=== PATIENT | female | born 2000 | race Caucasian/White ===

== ENCOUNTER 2024-06-13 11:01 | Emergency (ER) | payer BC, MEDICAID ==
[~2024-06-13] VITALS: Ht 160 cm; Wt 50.9 kg
--- NOTE | 2024-06-13 11:31 | Physician Documentation ---
History of Present Illness ~ Chief Complaint: Urinary Symptoms Stated Complaint: HEADACHE Time Seen by MD: 11:15 Primary Medical Doctor: amalia Mode of Arrival: Dropped Off HPI This 24-year-old female presents with five days of sore throat and two days of headache, patient reports subjective fever at home however is not taking her temperature, patient reports she called her primary care provider who asked her to presented to the emergency department for concern for meningitis. Patient reports headache is more prominent frontal and has posterior neck soreness. Patient reports feeling of nausea without vomiting. I spoke to her primary care provider prior to her arrival. Patient is on her 5th day of a five day course of TMP SMX for urinary tract infection. Patient reports her significant other also is developing a sore throat. Medication Reconciliation Allergies: Coded Allergies: Penicillins (Verified Allergy, Intermediate, 06/13/24) Past Medical History Past Medical History: No Pertinent History Review of Systems ROS Sore throat, headache, posterior neck pain as stated above in the HPI, otherwise all systems are reviewed and negative. Physical Exam Vital Signs: Temperature: 98.7, Source: Oral, Heart Rate: 117, Respiratory Rate: 18, BP: 122/67, Pulse Oximetry: 99, Weight: 50.850 Physical Exam VITALS: Reviewed and as above. GENERAL: Alert and oriented x4, nontoxic appearing, no apparent distress. HEENT: PERRLA, EOMI, negative Brudzinski sign, no meningeal signs, neck supple with mild tenderness to the posterior base of skull at the neck. Tonsils non swollen, mildly erythematous, mucosa moist RESPIRATORY: No increased work of breathing, no respiratory distress, speaking in full clear sentences, clear lung sounds in all brown CV: Regular rate and rhythm no murmur BACK: No CVA tenderness, GI: Nondistended, no tenderness to palpation, no rebound, no guarding SKIN: Warm and dry, No rash Progress Results/Orders Results/Orders Completed Orders - PADDY KAPADIA [employer] Hcg, Ur Ql (06/13/24 11:32) Cbc/Diff (06/13/24 11:32) CMP (06/13/24 11:32) Acetaminophen 325mg Tablet (Tylenol Tabl (06/13/24 11:35) Ua W/Microscopic, Cult If Ind (06/13/24 11:45) Man Diff (06/13/24 12:01) Ketorolac Trometh 15mg/Ml Vial (Toradol (06/13/24 12:45) Prochlorperazine Inj (Compazine Inj) (06/13/24 12:45) Normal Saline 1000ml (Sodium Chloride 10 (06/13/24 12:45) Diphenhydramine Inj (Benadryl Inj.) (06/13/24 12:45) Vital Signs 06/13/24 06/13/24 06/13/24 06/13/24 11:05 11:13 12:24 13:33 Temp 98.7 98.6 98.6 Pulse 117 103 94 Resp 18 18 16 18 B/P (MAP) 122/67 108/64 (79) 106/63 (77) Pulse Ox 99 97 99 O2 Flow Rate 0 0 06/13/24 06/13/24 13:34 14:28 Temp 98.6 Pulse 85 Resp 18 18 B/P (MAP) 112/86 Pulse Ox 99 Laboratory Tests Test 06/13/24 11:45 06/13/24 12:01 Urine Specimen Description Cln catch midstream Urine Color Yellow Urine Clarity Clear Urine pH 6.0 Urine Specific [place] >=1.030 Urine Protein Trace Urine Glucose (UA) Negative Urine Ketones 15 H Urine Occult Blood Negative Urine Nitrite Negative Urine Bilirubin Small Urine Urobilinogen 0.2 Urine Leukocyte Esterase Negative Urine RBC 0-2 Urine WBC None seen Urine Squamous Epithelial Cells Few Urine Bacteria None seen Urine Culture Indicated Not ind Volume Urine Centrifuged 10 ml Urine HCG, Qualitative Negative Urine Comment White Blood Count 1.7 L Red Blood Count 4.59 Hemoglobin 14.0 Hematocrit 41.5 Mean Corpuscular Volume 90.3 Mean Corpuscular Hemoglobin 30.5 Mean Corpuscular Hemoglobin Concent 33.7 Red Cell Distribution Width 13.6 Platelet Count 119 L Mean Platelet Volume 9.5 Neutrophils (%) (Auto) 72.4 Lymphocytes (%) (Auto) 10.5 L Monocytes (%) (Auto) 11.3 Eosinophils (%) (Auto) 5.5 Basophils (%) (Auto) 0.3 Neutrophils # (Auto) 1.2 L Lymphocytes # (Auto) 0.2 L Monocytes # (Auto) 0.2 Eosinophils # (Auto) 0.1 Basophils # (Auto) 0.0 CBC Comment Differential Total Cells Counted 100 Neutrophils % (Manual) 82.0 H Lymphocytes % (Manual) 7.0 L Monocytes % (Manual) 6.0 Eosinophils % (Manual) 5.0 Platelet Estimate Decreased Red Blood Cell Morphology Normal Basophilic Stippling Sodium Level 135 Potassium Level 3.6 Chloride Level 103 Carbon Dioxide Level 22.8 L Anion Gap 9 Blood Urea Nitrogen 10 Creatinine 1.04 H Estimated GFR/1.73 m2 66 BUN/Creatinine Ratio 9.6 L Glucose Level 81 Calcium Level 8.3 L Total Bilirubin 0.4 Aspartate Amino Transf (AST/SGOT) 15 Alanine Aminotransferase (ALT/SGPT) 23 Alkaline Phosphatase 55 Total Protein 6.8 Albumin 3.8 Globulin 3.0 Albumin/Globulin Ratio 1.3 Chemistry Comments Medical Decision Making Findings This 24-year-old female presented with five days of sore throat and two days headache with subjective fever at home, she was sent by her primary care provider due to concern for possible meningitis based on symptoms she described to them over the phone, however as provider did not see patient in the office and on physical exam patient is afebrile and did not have meningeal signs, believe this to be viral illness with a viral pharyngitis and headache. Patient was medicated for headache and responded well to medication. Remainder of physical exam was benign and vital signs stable, labs did demonstrate a dec reased WBC and platelet count that patient will require outpatient follow up in the next two weeks for recheck, otherwise lab work was unremarkable without evidence of infection or metabolic derangement. Patient is appropriate for outpatient follow up and patient was provided careful return to care precautions and home care instructions which she verbalized understanding of. I was able to have a conversation with the patient's primary care provider who called to follow up on patient's case after he directed her to the emergency department, during this conversation with the patient's primary care provider I did discuss patient's need for repeat labs due to WBC and platelet count being decreased which he agreed to facilitate. Differential Dx:Considerations: Include: MOON-Cluster, MOON-Migraine, MOON- Hypertensive, MOON-Muscular contraction, MOON-Post lumbar puncture, CVA, Mass lesion, Meningitis, Sinusitis Departure Disposition: HOME / SELF CARE / HOMELESS Impression: Primary Impression: Headache Qualified Codes: R51.9 - Headache, unspecified Additional Impression: Sore throat (viral) Condition: Improved Discharge Instructions: General Headache Without Cause, [id number], Sore Throat, [id number], Viral Illness, Adult Additional Instructions: Your exam was reassuring and I believe your symptoms are from a viral illness, you may use ibuprofen and/or Tylenol as needed for pain or fever. There was a slight abnormality in one of your lab values with your white blood cell count being decreased and I recommend following up with your primary care provider for a repeat set of labs in the next two weeks. Please follow up with your primary care provider in the next few days. Please return to the emergency department for any new or worsening concerning symptoms including but not limited to worsening pain, confusion, persistent vomiting, or a fever over 100.4 that does not lower with ibuprofen or Tylenol. Referrals: NO PRIMARY CARE PROVIDER (PCP) Education Educated: Patient Educated regarding: diagnosis, treatment, prognosis, need for follow up Signature Scribe Signature: No Scribe Attestation: The note accurately reflects work and decisions made by me.NAYANA Swift 06/13/24 21:01 PADDY KAPADIA Jun 13, 2024 11:31
[2024-06-13] MEDS: acetaminophen 325mg tablet PO ONE (11:37)
[2024-06-13 11:54] LABS: URINE HCG NEGATIVE (NEG)
[2024-06-13 11:59] LABS: BILIRUBIN,URINE SMALL (Neg); CLARITY,URINE CLEAR (Clear); COLOR,URINE YELLOW (Yellow); GLUCOSE, URINE NEGATIVE (Neg); KETONES,URINE 15 mg/dl (Neg); LEUKOCYTE ESTERASE ,URINE NEGATIVE (Neg); NITRITES, URINE NEGATIVE (Neg); OCCULT BLOOD,URINE NEGATIVE (Neg); PROTEIN,URINE TRACE mg/dl (Neg); UA COLLECTION TYPE CLN CATCH MIDSTREAM; UROBILINOGEN,URINE 0.2 E.U/dL (0.2-1.0)
[2024-06-13 12:02] LABS: BACTERIA,URINE NONE SEEN /HPF (Neg); RBC,URINE 0-2 /HPF (0-2); SQUAMOUS EPITHELIAL CELL,UR FEW /LPF (FEW); WBC,URINE NONE SEEN /HPF (0-4)
[2024-06-13 12:17] LABS: BASOPHILS % (AUTO) 0.3 % (0-1); EOSINOPHILS # (AUTO) 0.1 X10'3 (0-0.9); EOSINOPHILS % (AUTO) 5.5 % (0-6); HEMATOCRIT 41.5 % (35.0-45.0); LYMPHOCYTES # (AUTO) 0.2 X10'3 (1.1-4.8); LYMPHOCYTES % (AUTO) 10.5 % (21-51); MEAN CORPUSCULAR HEMOGLOBIN 30.5 PG (27.0-31.0); MEAN CORPUSCULAR HGB CONC 33.7 g/dL (33.0-36.5); MEAN CORPUSCULAR VOLUME 90.3 FL (78-98); MEAN PLATELET VOLUME 9.5 FL (7.4-10.4); MONOCYTES # (AUTO) 0.2 X10'3 (0-0.9); MONOCYTES % (AUTO) 11.3 % (2-12); NEUTROPHILS # (AUTO) 1.2 X10'3 (1.8-7.7); NEUTROPHILS % (AUTO) 72.4 % (42-75); PLATELET COUNT 119 X10'3 (140-440); RED BLOOD COUNT 4.59 X10'6 (4.20-5.60); RED CELL DISTRIBUTION WIDTH 13.6 % (11.5-14.5); WHITE BLOOD COUNT 1.7 X10'3 (4.5-11.0)
[2024-06-13 12:35] LABS: ALANINE AMINOTRANSFERASE 23 U/L (12-78); ALBUMIN 3.8 G/DL (3.4-5.0); ALBUMIN/GLOBULIN RATIO 1.3 (1.1-1.5); ALKALINE PHOSPHATASE 55 IU/L (46-116); ANION GAP 9 (8-16); ASPARTATE AMINO TRANSFERASE 15 U/L (10-37); BILIRUBIN,TOTAL 0.4 MG/DL (0.1-1.0); BLOOD UREA NITROGEN 10 MG/DL (7-18); BUN/CREATININE RATIO 9.6 (10.0-20.0); CALCIUM 8.3 MG/DL (8.5-10.1); CHLORIDE 103 MMOL/L (99-107); CREATININE 1.04 MG/DL (0.40-0.90); GLUCOSE 81 MG/DL (70-104); POTASSIUM 3.6 MMOL/L (3.5-5.1); SODIUM 135 MMOL/L (135-145); TOTAL CARBON DIOXIDE 22.8 MMOL/L (24-32); TOTAL PROTEIN 6.8 G/DL (6.4-8.2); eCRCL 68 ML/MIN; eGFR 66 ML/MIN
[2024-06-13 12:38] LABS: PLATELET ESTIMATE DECREASED; TOTAL CELLS COUNTED 100
[2024-06-13] MEDS: ketorolac trometh 15mg/ml vial 15 MG/ML ML IV ONE (13:34)
[2024-06-13] MEDS: diphenhydrAMINE 50 mg/ml inj IV ONE (13:34)
[2024-06-13] MEDS: proCHLORperazine 10 MG/2 ml inj IM ONE (13:35)
[2024-06-13] MEDS: normal saline 1000ML IV soln IVB ONE (13:35)
[2024-06-13 14:28] VITALS: BP 112/86; PULSE 85; RESP 18; TEMP 98.6; O2SAT 99
== END 2024-06-13 14:29 | disposition home or self-care (01) ==
LOC: ER 11:02
DX: R51.9 Headache, unspecified (principal); J02.9 Acute pharyngitis, unspecified
CPT/HCPCS: 80053; 81001; 81025; 85025; 96361; 96372; 96374; 96375; 99284; J0780; J1200; J1885; J7030; 85007